=== PATIENT | female | born 1975 | race Caucasian/White ===

== ENCOUNTER 2016-12-14 22:28 | Emergency (ER) | payer OTHER ==
[~2016-12-14] VITALS: Ht 165.1 cm; Wt 64.0 kg
[~2016-12-14 22:28] MED LIST: SUMA100T16 PO
[2016-12-15] MEDS ORDERED: KETOROLAC 60MG/2ML VIAL IM ONE (04:30)
[2016-12-15] MEDS ORDERED: ONDANSETRON HCL 4MG/2ML VIAL IM ONE (04:30)
[2016-12-15 05:21] VITALS: BP 126/77
[2016-12-15 05:38] LABS: GLUCOSE URINE NEGATIVE (NEGATIVE); KETONES URINE NEGATIVE (NEGATIVE); LEUKOCYTE ESTERASE URINE NEGATIVE (NEGATIVE); NITRITE URINE NEGATIVE (NEGATIVE); OCCULT BLOOD URINE NEGATIVE (NEGATIVE); PH URINE 5.5 (4.5-8.0); PROTEIN URINE NEGATIVE (NEGATIVE); UROBILINOGEN URINE 0.2 E.U./dL (0.2-1.0)
[2016-12-15 05:43] LABS: CLARITY URINE CLEAR (CLEAR); COLOR URINE YELLOW (YELLOW)
== END 2016-12-15 06:03 | disposition home or self-care (01) ==
LOC: ER 22:28
DX: G44.89 Other headache syndrome (principal); R11.0 Nausea; F17.210 Nicotine dependence, cigarettes, uncomplicated; I10 Essential (primary) hypertension
CPT/HCPCS: 81003; 81025; 96372; 99284; J1885; J2405